=== PATIENT | female | born 1970 | race Caucasian/White ===

== ENCOUNTER 2019-01-14 07:19 | Inpatient (IN) | payer OTHER ==
[~2019-01-14] VITALS: Ht 142.2 cm; Wt 70.3 kg
[2019-01-14 07:40] VITALS: BP 139/62
[2019-01-14 13:07] VITALS: BP 160/86
[2019-01-14 17:55] VITALS: BP 140/53
[2019-01-14 21:00] VITALS: BP 132/70
[2019-01-15 05:42] VITALS: BP 112/57
[2019-01-15 08:37] VITALS: BP 109/67
[2019-01-15 18:39] VITALS: BP 110/53
[2019-01-15 20:58] VITALS: BP 114/59
[2019-01-16 05:19] VITALS: BP 114/58
[2019-01-16 08:28] VITALS: BP 143/65
[2019-01-16 11:44] VITALS: BP 116/62
[2019-01-16 16:32] VITALS: BP 116/68
[2019-01-16 18:15] VITALS: BP 116/68
== END 2019-01-16 19:04 | disposition home or self-care (01) | DRG 519 ==
LOC: MU 07:19 → DU 09:30 → MU 12:27
PROVIDERS: ADMIT Obstetrics & Gynecology
PROC: 0UT50ZZ Resection of Right Fallopian Tube, Open Approach (ICD-10-PCS; 2019-01-14)
PROC: 0UT00ZZ Resection of Right Ovary, Open Approach (ICD-10-PCS; 2019-01-14)
PROC: 0UBM0ZZ Excision of Vulva, Open Approach (ICD-10-PCS; 2019-01-14)
PROC: 0UT90ZL Resection of Uterus, Supracervical, Open Approach (ICD-10-PCS; principal; 2019-01-14 09:30)
DX: D25.9 Leiomyoma of uterus, unspecified (principal); D28.0 Benign neoplasm of vulva; N92.0 Excessive and frequent menstruation with regular cycle; N83.01 Follicular cyst of right ovary; Z82.49 Family history of ischemic heart disease and other diseases of the circulatory system; Z83.3 Family history of diabetes mellitus
CPT/HCPCS: G0378; J0690; J1170; J1885; J2270; J2405; J2704; J2710; J3010; J3490; J7120